=== PATIENT | male | born 1940 | race Caucasian/White ===

== ENCOUNTER 2017-05-29 21:32 | Emergency (ER) | payer BC, MEDICARE ==
[~2017-05-29] VITALS: Ht 172.7 cm; Wt 71.7 kg
--- NOTE | ~2017-05-29 | EKG ---
PATIENT: FABI COX UNIT #: [id number] Ventricular Rate: 141 BPM Atrial Rate: 101 BPM P-R Interval: 176 ms QRS Duration: 148 ms Q-T Interval: 364 ms QTC Calculation(Bezet): 557 ms P Frederic: 78 degrees Calculated R Frederic: -59 degrees Calculated T Frederic: 98 degrees Diagnosis Line: Sinus tachycardia with frequent Premature Diagnosis Line: ventricular complexes Diagnosis Line: Left axis deviation Diagnosis Line: Left bundle branch block Diagnosis Line: Abnormal ECG Diagnosis Line: No previous ECGs available Diagnosis Line: Confirmed by MARTY CHAVARRIA MD ([id number]) on Diagnosis Line: 05/31/2017 10:42:14 AM INTERPRETING MD: DEON HODGES
--- NOTE | ~2017-05-29 | CT71 ---
[facility] A Service [facility] RADIOLOGY TEXT RESULTS PATIENT: FABI COX JR LOCATION: SED : 39 UNIT #: [id number] AGE: [address]: Tushar Carlos MD SEX: M ORDER DR: [id number] [place] [id number] E MR#: [id number] Acc #: [id number] NAME: FABI COX JR : 1940 SEX: M STUDY DATE/TIME: 05/29/2017 23:25 UNIT: SED ROOM: STUDY DESCRIPTION: CT Head Wo Contrast Attending Physician: Tushar Carlos M.D. Ordering Physician: Tushar Carlos M.D. Primary Care Physician: Teena Dorman M.D. MEDICAL IMAGING REPORT This report is preliminary unless electronic signature is present. EXAM CT head without contrast INDICATION Dizziness for the past [address] of the head. This CT examination was performed with one or more of the following radiation dose reduction techniques: automatic exposure control, adjustment of mA and/or kV according to patient size, and iterative reconstruction. COMPARISON None. FINDINGS No acute hemorrhage, abnormal mass effect, extraaxial fluid collection or hydrocephalus. No depressed calvarial fracture. The paranasal sinuses and mastoid air cells are clear. IMPRESSION No acute intracranial findings. Dictated by... Phu Alarcon M.D. THIS IS AN ELECTRONICALLY VERIFIED REPORT Phu Alarcon M.D. at 05/30/2017 9:56 PM EED/olesya TD: 05/30/2017 11:11 [facility] A Service [facility] RADIOLOGY TEXT RESULTS PATIENT: FABI COX JR LOCATION: SED : 39 UNIT #: [id number] AGE: [address]: Tushar Carlos MD SEX: M ORDER DR: JOB #: [id number] MEDICAL IMAGING REPORT Page 1 of 1
--- NOTE | ~2017-05-29 | CR72 ---
[facility]. [facility] A Service of [facility] RADIOLOGY TEXT RESULTS PATIENT: FABI COX JR LOCATION: SED : 39 UNIT #: [id number] AGE: [address]: Tushar Carlos MD SEX: M ORDER DR: [id number] [place] [address] [id number] E MR#: [id number] Acc #: [id number] NAME: FABI COX JR : 1940 SEX: M STUDY DATE/TIME: 05/29/2017 23:15 UNIT: SED ROOM: STUDY DESCRIPTION: CR Chest Single View Portable Attending Physician: Tushar Carlos M.D. Ordering Physician: Tushar Carlos M.D. Primary Care Physician: Teena Dorman M.D. MEDICAL IMAGING REPORT This report is preliminary unless electronic signature is present. EXAM Portable chest INDICATION Dizziness, right-sided chest pain for the past 2 days. PROCEDURE Frontal view of the chest. COMPARISON None. FINDINGS Heart size is normal. Probably chronic diffuse interstitial coarsening. There is hazy opacity in the right upper lobe. IMPRESSION Hazy opacity in the right upper lobe suspicious for infiltrate but could also represent asymmetric edema. Dictated by... Phu Alarcon M.D. THIS IS AN ELECTRONICALLY VERIFIED REPORT Phu Alarcon M.D. at 05/30/2017 9:56 PM EED/df TD: 05/30/2017 11:00 JOB #: [id number] MEDICAL IMAGING REPORT Page 1 of 1
[2017-05-29] MEDS ORDERED: COZAAR25 MG PO (21:41)
[2017-05-29 22:46] LABS: BASOPHIL% 0.3 % (0-2.5); HEMATOCRIT 39.8 % (38.0-50.0); HEMOGLOBIN 13.8 gm/dL (13.0-16.0); LYMPHOCYTE# 0.6 X10e3 (1.0-3.5); LYMPHOCYTE% 10.1 % (17.0-45.0); MEAN CELL VOLUME 93.1 FL (83-96); MEAN CORPUSCULAR HEMOGLOBIN 32.3 PG (28-34); MEAN CORPUSCULAR HGB CONC 34.6 g/dL (30-36); MEAN PLATELET VOLUME 8.3 FL (6.5-11.5); MONOCYTE% 18.2 % (3.0-12.0); NEUTROPHIL% 71.4 % (40-75); PLATELET COUNT 186 X10e3 (140-420); RED BLOOD COUNT 4.27 X10e (3.90-5.60); RED CELL DISTRIBUTION WIDTH 13.6 % (11.0-15.5); WHITE BLOOD COUNT 5.7 X10e3 (4.0-10.5)
[2017-05-29 22:47] LABS: INR 1.4; PROTHROMBIN TIME (PATIENT) 15.8 SECONDS (9.5-12.4)
[2017-05-29 22:48] LABS: DIFF IND NO
[2017-05-29 22:54] LABS: PARTIAL THROMBOPLASTIN TIME 25.8 SECONDS (25.6-38.1)
[2017-05-29 22:55] LABS: ALBUMIN SERUM 3.7 g/dL (3.5-5.0); ALCOHOL BLOOD <5 mg/dL (0); ALKALINE PHOSPHATASE 45 U/L (32-92); ALT (SGPT) 15 U/L (10-40); AST (SGOT) 20 U/L (10-42); BILIRUBIN,TOTAL 2.1 mg/dL (0.2-2.0); BLOOD UREA NITROGEN 18 mg/dL (9-23); CALCIUM SERUM 8.4 mg/dL (8.4-10.2); CARBON DIOXIDE 23 mmol/L (22-31); CHLORIDE 100 mmol/L (100-111); GLOM FILT RATE Estimated 72.3 mL/min (>60); GLUCOSE FASTING 161 mg/dL (70-110); POTASSIUM 3.5 mmol/L (3.5-5.1); SODIUM 132 mmol/L (135-145)
[2017-05-29 23:03] LABS: POC - CKMB <1.0 ng/mL (0.0-7.9)
[2017-05-29 23:04] LABS: POC - TROPONIN <0.05 ng/mL (<=0.05)
[2017-05-29 23:32] LABS: URINE SOURCE CLEAN CATCH
[2017-05-29 23:34] LABS: URINE APPEARANCE CLEAR; URINE BILIRUBIN NEG (NEG); URINE BLOOD 2+ (NEG); URINE COLOR YELLOW; URINE GLUCOSE 50 MG/DL (NORM); URINE KETONE NEG (NEG); URINE LEUKOCYTE ESTERASE NEG (NEG); URINE NITRATE NEG (NEG); URINE PROTEIN 1+ (NEG); URINE SPECIFIC GRAVITY 1.025 (1.003-1.035); URINE UROBILINOGEN 0.2 MG/DL (NORM)
[2017-05-29 23:36] LABS: MICRO INDICATED? YES
[2017-05-29 23:38] LABS: CULTURE INDICATED? NO; URINE BACTERIA NEG (NEG); URINE SQUAMOUS EPITHELIAL CELL FEW /[HPF]; URINE WBC 0-2 /[HPF] (0-5)
[2017-05-29 23:44] LABS: AMPHETAMINE NEG (NEG); BARBITURATES NEG (NEG); BENZODIAZEPINES NEG (NEG); COCAINE NEG (NEG); MARIJUANA NEG (NEG); OPIATES NEG (NEG); TRICYCLIC ANTIDEPRESSANTS NEG (NEG); U METHADONE NEG (NEG)
== END 2017-05-30 02:39 ==
LOC: SED 21:32
DX: J18.9 Pneumonia, unspecified organism (principal); Z79.899 Other long term (current) drug therapy
CPT/HCPCS: 36415; 70450; 71010; 80053; 80307; 81003; 82553; 83605; 83874; 84443; 84484; 85025; 85610; 85730; 87040; 93005; 96361; 96365; 96375; 99285; G0480; J0456; J0696